=== PATIENT | female | born 1960 | race Caucasian/White ===

== ENCOUNTER → 2016-07-28 | Outpatient (CLI) | payer BC ==
[~2016-07-28] MED LIST: ATIVAN 0.50.5 MG/TAB; BLOCADREN10 MG; DEXILANT60 MG PO; FLEXERIL; MELOXICAM; MOBIC 7.5MG7.5 MG PO; PREVACID 15MG15 M1; TRI-EST; ZITHROMAX Z PA250 MG PO; ZOMIG2.5 MG PO
== END ==
LOC: MC.RAD 08:00
DX: Z12.31 Encounter for screening mammogram for malignant neoplasm of breast (principal)

== ENCOUNTER → 2016-11-19 | Outpatient (CLI) | payer BC | LOC: COL.RAD 11-13 14:00 | DX: M25.551 Pain in right hip (principal) | CPT/HCPCS: J3301; Q9967 ==

== ENCOUNTER 2017-06-15 16:15 | Outpatient (RCR) | payer BC | END 2017-06-16 08:09 | disposition home or self-care (01) | LOC: MKS.ESL.OT 16:15 | DX: M19.041 Primary osteoarthritis, right hand (principal) ==

== ENCOUNTER → 2017-08-06 | Outpatient (CLI) | payer BC | LOC: MC.RAD 13:16 | DX: Z12.31 Encounter for screening mammogram for malignant neoplasm of breast (principal) ==

== ENCOUNTER → 2018-08-03 | Outpatient (CLI) | payer BC | LOC: COL.RAD 08:23 | DX: J32.9 Chronic sinusitis, unspecified (principal); J34.89 Other specified disorders of nose and nasal sinuses ==

== ENCOUNTER → 2018-08-29 | Outpatient (CLI) | payer BC | LOC: MC.RAD 13:29 | DX: Z12.31 Encounter for screening mammogram for malignant neoplasm of breast (principal) ==

== ENCOUNTER → 2019-09-19 | Outpatient (CLI) | payer BC | LOC: MC.RAD 09-04 08:15 | DX: Z12.31 Encounter for screening mammogram for malignant neoplasm of breast (principal); N63.10 Unspecified lump in the right breast, unspecified quadrant ==

== ENCOUNTER → 2019-09-21 | Outpatient (CLI) | payer BC | LOC: MC.RAD 09:15 | DX: N60.11 Diffuse cystic mastopathy of right breast (principal) | CPT/HCPCS: G0279 ==

== ENCOUNTER → 2020-09-24 | Outpatient (CLI) | payer BC | LOC: MC.RAD 11:45 | DX: Z12.31 Encounter for screening mammogram for malignant neoplasm of breast (principal) ==

== ENCOUNTER → 2021-06-10 | Outpatient (CLI) | payer BC | LOC: COL.RAD 09:43 | DX: M79.642 Pain in left hand (principal) | CPT/HCPCS: J3301; Q9967 ==

== ENCOUNTER → 2021-09-10 | Outpatient (CLI) | payer BC | LOC: COL.RAD 12:45 | DX: M79.645 Pain in left finger(s) (principal); M79.642 Pain in left hand | CPT/HCPCS: J3301; Q9967 ==

== ENCOUNTER → 2021-10-14 | Outpatient (CLI) | payer BC | LOC: MC.RAD 08:25 | DX: Z12.31 Encounter for screening mammogram for malignant neoplasm of breast (principal) ==

== ENCOUNTER → 2022-01-28 | Outpatient (CLI) | payer BC | LOC: COL.RAD 08:28 | DX: M18.12 Unilateral primary osteoarthritis of first carpometacarpal joint, left hand (principal) | CPT/HCPCS: J3301; Q9967 ==

== ENCOUNTER → 2023-12-06 | Outpatient (CLI) | payer BC ==
[~2023-12-06] MED LIST changes: +AIMOVIG AU70 MG/1 ML SQ; +CLIMARA 0.1 PATCH.WK TD; +MOBIC15 MG PO; +PREVACID 30MG30 M1 PO; +SINGULAIR 110 MG/TAB PO; +ZOMIG ZMT PO
== END ==
LOC: MC.RAD 08:54
DX: Z12.31 Encounter for screening mammogram for malignant neoplasm of breast (principal)